=== PATIENT | female | born 1955 | race Two or more races ===

== ENCOUNTER → 2017-02-20 | Outpatient (CLI) | payer BC ==
--- NOTE | 2017-03-10 00:54 | ECWPNPC ---
PATIENT NAME: JAVIER CHAVES : 1955 GENDER: FEMALE VISIT DATE: 02/20/2017 DISCHARGE DATE: 02/20/17 1308 VISIT LOCKED DATE TIME: PHYSICIAN: CARON BHAGAT RESOURCE: CARON BHAGAT REASON FOR APPOINTMENT 1. LOW BACK/HIP HISTORY OF PRESENT ILLNESS FALL RISK SCREENING: SCREENING :NO FALLS IN THE PAST YEAR PAIN SCREENING: PATIENT HAS A COMPLAINT OF ACUTE OR CHRONIC PAIN :YES TODAY'S VISIT: NOTES: REFERRED BY DR GERBRE FOR LOW BACK PAIN. HAD NEW ONSET OF PAIN INLOW BACK IN SEPTEMBER. WAS SENT TO PT - NO IMPROVEMENT - SAW CHIRO WITH ONLY TEMP HELP. PAIN RADIATED WTO LEFT KNEE. PAIN IS CONSTANT. CAN HAVE A PROB STANDING. WORST IS WHEN GETTING UP IN AM. NO FALLS STUMBLES. NO N/T IN LEGSNO LOSS OF BOWEL CONTROL. NO SADDLE NUMBNESS. MUSCLE RELAXERS NO HELP. . CURRENT MEDICATIONS TAKING NORTRIPTYLINE HCL 50 MG CAPSULE 1 CAPSULE AT BEDTIME ORALLY ONCE A DAY TAKING IMITREX 6 MG/0.5ML SOLUTION 0.5 ML NEEDED SUBCUTANEOUS TWICE A DAY TAKING SUMATRIPTAN SUCCINATE 100 MG TABLET 1 TABLET NEEDED ORALLY TWICE DAILY NEEDED TAKING VITAMIN B12 100 MCG TABLET ORALLY TAKING VITAMIN D 1000 UNIT TABLET 1 TABLET ORALLY ONCE A DAY TAKING DETROL LA 4 MG CAPSULE EXTENDED RELEASE 24 HOUR 1 CAPSULE ORALLY ONCE A DAY TAKING ASPIRIN 325 MG TABLET 1 TABLET ORALLY ONCE A DAY TAKING CYCLOBENZAPRINE HCL 10 MG TABLET 1 TABLET NEEDED ORALLY THREE TIMES A DAY TAKING PANTOPRAZOLE SODIUM 20 MG TABLET DELAYED RELEASE 2 TABLETS ORALLY ONCE A DAY NOT-TAKING MULTIVITAMIN ADULT - TABLET ORALLY NOT-TAKING CALCIUM 600 MG TABLET 1 TABLET WITH MEALS ORALLY TWICE A DAY NOT-TAKING AMBIEN 5 MG TABLET 1 TABLET AT BEDTIME ORALLY ONCE A DAY DISCONTINUED PREVACID 15 MG CAPSULE DELAYED RELEASE 1 CAPSULE ORALLY ONCE A DAY MEDICATION LIST REVIEWED AND RECONCILED WITH THE PATIENT PAST MEDICAL HISTORY MIGRAINES CERVICOGENIC HEADACHES WITH CERVICALGIA H/O TIA HX OF CHEST PRESSURE, PER ST [facility] NEGATIVE FOR [place] ALLERGIES TETRACYCLINE HCL: RASH: ALLERGY ZOLOFT: LOW HEART RATE: SIDE EFFECTS SURGICAL HISTORY ROTATOR CUFF RIGHT CARPAL TUNNEL RIGHT CYST REMOVED OFF FOOT RIGHT FAMILY HISTORY FATHER: 79 YRS, DIAGNOSED WITH CANCER MOTHER: ALIVE 85 YRS, DIAGNOSED WITH HYPERTENSION, HEART DISEASE 1 SON(S) , 1 DAUGHTER(S) - HEALTHY. 1 BROTHER, 1 SISTER WITH CANCER. SOCIAL HISTORY GENERAL: TOBACCO USE ARE YOU A: FORMER SMOKER, 1 PPD X 30 YEARS, QUIT 10 YEARS AGO LUNG CANCER SCREENING SMOKING STATUS:FORMER SMOKER RECREATIONAL DRUG USE DRUG USE?NO CAFFEINE CAFFEINE USE?YES ADVANCED DIRECTIVES HEALTH CARE PROXY?NO WOULD YOU LIKE MORE INFORMATION?YES DO YOU HAVE A DNR?NO WOULD YOU LIKE MORE INFORMATION?NO LIVING WILL?NO WOULD YOU LIKE MORE INFORMATION?NO POWER OF TURN OUT WORKER?YES NAME OF POA? SHREYA CHAVES [phone] PHONE # OF POA?FILL OUT FREE FORM NOTES SECTION HOSPITALIZATION/MAJOR DIAGNOSTIC PROCEDURE NO HOSPITALIZATION HISTORY. REVIEW OF SYSTEMS CONSTITUTIONAL: ANY CHANGE IN YOUR MEDICAL CONDITION? NO . CHILLS NO . FEVER NO . INFECTION: DO YOU HAVE NEW INFECTIONS? NO . DO YOU HAVE HISTORY OF MRSA? NO . MUSCULOSKELETAL: ANY NEW PATTERNS OF PAIN OR NUMBNESS? 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 PT STATES PAIN STARTED IN RIGHT SIDE, THEN WENT TO LEFT SIDE. PT ALSO REPORTS CHRONIC NECK/SHOULDER/ARM LEFT FROM INJURY AT WORK 2008. PT REPORTS PAIN TODAY IS IN LEFT HIP, RADIATING DOWN LEFT LEG. . SYTEMIC LUPUS NO . GASTROENTEROLOGY: ANY NEW CHANGE IN BOWEL CONTROL? NO . BARRETTS ESOPHAGUS NO . CIRRHOSIS NO . HEPATITIS NO . LIVER FAILURE NO . ACID REFLUX YES . UNEXPLAINED WEIGHT LOSS NO . GENITOURINARY: ANY NEW CHANGE IN BLADDER CONTROL? NO . IS THERE A CHANCE YOU COULD BE ? NO . HEMATOLOGY/LYMPH: DO YOU TAKE ANY BLOOD THINNERS? (FOR EXAMPLE- COUMADIN, PLAVIX, AGGRENOX, PLATEL, PRADAXA, OR XARELTO) NO . WHEN WAS YOUR LAST DOSE? DATE: TIME: . LOW PLATELET COUNT NO . SICKLE CELL DISEASE NO . VON WILLIEBRANDS NO . FACTOR V LEIDEN NO . THALLASEMIA NO . ANEMIA NO . EASY BRUISING NO . NEUROLOGY: HAVE YOU FALLEN IN THE PAST 6 MONTHS? NO . ANY NEW EXTREMITY NUMBNESS OR WEAKNESS? NO . HEAD INJURY NO . DEMENTIA NO . CEREBRAL PALSY NO . MULTIPLE SCLEROSIS NO . DIZZINESS NO . HEADACHE NO . STROKES HX OF TIA. HX OF MIGRAINES . VERTIGO NO . CARDIOLOGY: DO YOU HAVE A PACEMAKER OR DEFIBRILLATOR? NO . ANGINA NO . HEART ATTACK NO . HEART SURGERY NO . CONGESTIVE HEART FAILURE/FLUID OVERLOAD NO . CHEST PAIN YES - HX ST ELAVATION WITH TON OF BRICKS. . HIGH BLOOD PRESSURE NO . IRREGULAR HEART BEAT NO . RESPIRATORY: HAVE YOU BEEN SICK IN THE PAST WEEK? NO . FEVER NO . FLU LIKE SYMPTOMS? NO . CPAP NO . BYPAP NO . ASTHMA NO . EMPHYSEMA NO . CHRONIC LUNG DISEASES NO . SHORTNESS OF BREATH ON EXERTION NO . COUGH NO . SNORING NO . INTEGUMENTARY: DO YOU HAVE ANY RASHES OR OPEN SORES? NO . ALLERGIC/IMMUNO: ARE YOU ALLERGIC TO SHELLFISH OR IV DYE? NO . ANY NEW ALLERGIES? NO . PSYCHIATRIC: DO YOU HAVE THOUGHTS OF HURTING YOURSELF OR SOMEONE ELSE? NO . ARE YOU ABUSED, NEGLECTED, OR IN AN UNSAFE ENVIRONMENT? NO . ENDOCRINOLOGY: ARE YOU DIABETIC? NO . THYROID DISORDER NO . OTHER: DO YOU NEED ANY PRESCRIPTIONS? NO . IF YES, PLEASE LIST: ____ . ANY NEW PROBLEMS WITH YOUR MEDICATIONS? NO . WHEN DID YOU LAST EAT? ____ . WHEN DID YOU LAST DRINK? ____ . WHAT DID YOU LAST DRINK? ____ . NAME OF PERSON DRIVING YOU HOME? ____ . DO YOU HAVE ANY OTHER QUESTIONS OR CONCERNS NO . REVIEWED BY: PROVIDER: . VITAL SIGNS WT 156.8 LBS, HT 63", BMI 27.77 INDEX, BP 128/84 MM HG, HR 69 /MIN, RR 16 /MIN, TEMP 99.5 F, OXYGEN SAT % 96%, NA INITIALS TL 1204, REVIEWED BY: ABDIAS. EXAMINATION GENERAL EXAMINATION: PSYCHALERT , ORIENTED X 3 , APPROPRIATE MOOD AND AFFECT . HEENT:NORMOCEPHALIC, NO LYMPHADENOPATHY, NO THYROMEGLY. LUNGS:CLEAR TO AUSCULTATION BILATERALLY, NO WHEEZES, RALES OR RHONCHI. HEART:HEART RATE REGULAR, NORMAL S1S2, NO MURMURS, CLICK OR RUBS, NO CAROTID BRUITS. MUSCULOSKELETAL:MUSCLE STRENGTH TESTING 5/5 BILATERAL UPPER AND LOWER EXTREMITIES. ABLE TO FLEX TO 45 DEGREES, EXTEND TO 15 DEGREES AND ROTATE WITHOUT DIFFICULTY. POINT TENDERNESS OVER LUMBAR SPINOUS PROCESSES AND ACROSS LUMBOSACRAL AXIS, LEFT > RIGHT. POINT TENDERNESS OVER LEFT SACRAL ILIAC JOINT. , TRIGGER POINTS AND TIGHT FIBROUS BANDS NOTED OVER THE SACRUM LEFT > RIGHT. POSITIVE SLR AT 30 DEGREES ON RIGHT. NO PAIN WITH PELVIS COMPRESSION. POSITIVE PATRICKS TESTING ON LEFT.. NEUROLOGIC EXAM:DTR'S 2=BILATERAL UPPER AND LOWER ETREMITIES. NO SENSORY DEFICEIT WO LIGHT TOUCH. DIAGNOSTIC TESTS REVIEWEDMRI OF LUMBAR SPINE COMPLETED ON 11/07/16REVIEWED: DEMONSTRATES LUMBAR FACET ARTHROPATHY L3-4, L4-5 AND L5-S1. MILD POSTERIOR DISC HERNIATIONS AT L4-5 AND L5-S1. LUMBAR SPONDYLOSIS AT MULTIPLE LEVELS. ASSESSMENTS LUMBAR FACET ARTHROPATHY - M12.88 (PRIMARY) SACROILIITIS - M46.1 LUMBAR DISC DISPLACEMENT WITHOUT MYELOPATHY - M51.26 TREATMENT LUMBAR FACET ARTHROPATHY NOTES: STATRT GABAPENTIN 1 AT BEDTIME FOR 1-2 WEEKS, THEN INCREASE TO TWICE A DAY.SWIM. ICE TO LOW BACK. PROCEDURE CODES FA211 ESTABILISHED PATIENT [facility] CHARGE DISPOSITION & COMMUNICATION FOLLOW UP CALL IF APPOINTMET NEEDED ELECTRONICALLY SIGNED BY STEPHIE BENZ ON 03/09/2017 AT 06:10 PM EDT DISCLAIMER : THIS IS A VISIT SUMMARY EXTRACTED FROM THE [employer] CHART. IT IS NOT A COPY OF THE [employer] PROGRESS NOTE. CHARLES
== END ==
LOC: M PAIN 11:20
PROVIDERS: ATTEND Nurse Practitioner Family
DX: G89.29 Other chronic pain (principal); M12.88 Other specific arthropathies, not elsewhere classified, other specified site; M46.1 Sacroiliitis, not elsewhere classified; M51.26 Other intervertebral disc displacement, lumbar region; G43.909 Migraine, unspecified, not intractable, without status migrainosus; Z86.73 Personal history of transient ischemic attack (TIA), and cerebral infarction without residual deficits; Z87.891 Personal history of nicotine dependence; Z88.1 Allergy status to other antibiotic agents; Z88.8 Allergy status to other drugs, medicaments and biological substances; Z79.82 Long term (current) use of aspirin; Z79.899 Other long term (current) drug therapy

== ENCOUNTER → 2023-03-10 | Outpatient (REF) | payer MEDICARE, BC | LOC: M SFHCDERM 18:24 | PROVIDERS: ATTEND Nurse Practitioner Family | DX: L72.0 Epidermal cyst (principal) ==